=== PATIENT | male | born 1995 | race Caucasian/White ===

== ENCOUNTER 2018-02-20 23:32 | Observation (INO) | payer OTHER ==
[~2018-02-20] VITALS: Ht 190.5 cm; Wt 64.9 kg
[2018-02-21] VITALS (14 sets, daily range): BP systolic 102–140; BP diastolic 57–83; PULSE 62–112; TEMP 98.1–98.8
[2018-02-21 00:20] LABS: BASO % 0.3 % (0.0-2.0); EOS # 0.4 (0.0-0.7); GRAN # 3.8 (1.4-6.5); GRAN % 54.4 % (42.2-75.2); HEMATOCRIT 43.7 % (36.0-47.0); LYMPH # 2.2 (1.2-3.4); LYMPH % 31.2 % (20.0-51.0); MEAN CELL VOLUME 85 fl (80.0-95.0); MEAN CORPUSCULAR HEMOGLOBIN 29 pg (26.0-32.0); MEAN CORPUSCULAR HGB CONC 34 g/dl (33.0-37.0); MEAN PLATELET VOLUME 9.1 fl (7.4-10.4); MONO # 0.6 (0.1-0.6); PLATELET COUNT 279 K/mm3 (130-400); RED BLOOD COUNT 5.13 M/mm3 (4.20-5.60); REDCELL DISTRIBUTION WIDTH-CV 12.5 % (11.5-14.5)
[2018-02-21 00:35] LABS: ALBUMIN 4.5 gm/dL (3.5-5.0); BILIRUBIN,TOTAL 0.8 mg/dL (0.0-1.0); CALCIUM 9.3 mg/dL (8.4-10.2); CREATININE, serum 0.92 mg/dL (0.66-1.25); POTASSIUM 3.6 mmol/L (3.4-5.0); TOTAL PROTEIN 7.8 gm/dL (6.4-8.2)
[2018-02-21] MEDS ORDERED: ALLEGRA ALLERG180 MG PO (01:58)
[2018-02-21] MEDS ORDERED: FLONASE NASAL S16 GM NS (01:59)
[2018-02-22] VITALS (8 sets, daily range): BP systolic 104–116; BP diastolic 51–70; PULSE 50–79; TEMP 97.8–98.7
[2018-02-23 00:30] VITALS: PULSE 48
[2018-02-23 04:23] VITALS: BP 116/74; PULSE 52; TEMP 97.4
[2018-02-23 07:39] VITALS: BP 125/83; PULSE 58; TEMP 97.5
[2018-02-23 11:00] VITALS: BP 128/67; PULSE 78; TEMP 97.5
== END 2018-02-23 10:55 | disposition home or self-care (01) ==
LOC: COL.ER 23:32 → SURG 02-21 00:07
PROVIDERS: Emergency Medicine
DX: J93.83 Other pneumothorax (principal)
CPT/HCPCS: A7041; A9284; G0378; J1885; J2270; J2704; J7030

== ENCOUNTER → 2018-02-25 | Outpatient (CLI) | payer OTHER ==
[~2018-02-25] MED LIST: ALLEGRA ALLERG180 MG PO; FLONASE NASAL S16 GM NS
== END ==
LOC: COL.RAD 10:03
DX: Z97.8 Presence of other specified devices (principal)

== ENCOUNTER 2021-01-12 18:43 | Inpatient (IN) | payer OTHER ==
[~2021-01-12] VITALS: Ht 193 cm; Wt 65.2 kg
[2021-01-12 19:31] LABS: BASO # 0.1 K/mm3 (0.0-0.2); BASO % 0.4 % (0.0-2.0); EOS # 0.4 K/mm3 (0.0-0.7); EOS % 2.7 % (0-4.0); GRAN # 9.7 K/mm3 (1.4-6.5); GRAN % 71.1 % (42.2-75.2); HEMATOCRIT 48.5 % (42.0-52.0); HEMOGLOBIN 16.7 g/dl (13.5-18.0); LYMPH # 2.2 K/mm3 (1.2-3.4); LYMPH % 15.8 % (20.0-51.0); MEAN CELL VOLUME 86 fl (80.0-100.0); MEAN CORPUSCULAR HEMOGLOBIN 30 pg (27.0-31.0); MEAN CORPUSCULAR HGB CONC 34 g/dl (33.0-37.0); MONO # 1.3 K/mm3 (0.1-0.6); MONO % 9.7 % (1.7-9.3); PLATELET COUNT 418 K/mm3 (130-400); RED BLOOD COUNT 5.64 M/mm3 (4.20-5.60); REDCELL DISTRIBUTION WIDTH-CV 11.8 % (11.5-14.5)
[2021-01-12 19:45] LABS: ALANINE AMINOTRANSFERASE 11 U/L (0-55); ALBUMIN 4.8 gm/dL (3.5-5.0); ALKALINE PHOSPHATASE 94 U/L (40-150); ANION GAP 19 mmol/L (7-16); AST,SGOT 17 U/L (5-34); BILIRUBIN,TOTAL 2.3 mg/dL (0.2-1.2); BLOOD UREA NITROGEN 18 mg/dL (9-21); CALCIUM 9.9 mg/dL (8.4-10.2); CARBON DIOXIDE 18 mmol/L (22-29); CHLORIDE 101 mmol/L (98-107); CREATININE, serum 1.26 mg/dL (0.72-1.25); GLUCOSE 122 mg/dL (70-99); POTASSIUM 3.5 mmol/L (3.5-4.5); SODIUM 138 mmol/L (136-145); TOTAL PROTEIN 8.2 gm/dL (6.2-8.1)
[2021-01-12 19:55] LABS: TROPONIN-I < 0.010 ng/mL (0.00-0.033)
[2021-01-12 23:45] VITALS: BP 126/63; PULSE 76; TEMP 97.7
[2021-01-13 04:05] VITALS: BP 115/63; PULSE 66; TEMP 97.7
--- NOTE | 2021-01-13 06:25 | NUR ---
PT ADMITTED TO ROOM 329 LAST NOC @2350 FROM ED ACCOMPANIED BY MOTHER AND ED STAFF, PT ABLE TO STAND AND PIVOT TO BED FROM CART. PT HAS CT PRESENT IN LEFT UPPER CHEST, CURRENTLY TO WATER SEAL, PLACED ON SUCTION ONCE IN BED, SMALL AMT OF SEROSANGUINOUS FLUID PRESENT IN TUBING. NO PAIN REPORTED ON ADMIT. PT ABLE TO SLEEP PART OF THE NOC, ARNOLD GIVEN THIS AM @0605, WITH MILK AND RAFA CRACKERS.
[2021-01-13 08:00] VITALS: BP 117/52; PULSE 70; TEMP 98.1
--- NOTE | 2021-01-13 09:23 | NUR ---
ROUNDED ON PT THIS AM. CONTINUE WITH CURRENT PLAN. REEVAL IN AM POSSIBLE DISCHARGE THEN.
[2021-01-13 12:00] VITALS: BP 115/60; PULSE 85; TEMP 98.3
--- NOTE | 2021-01-13 14:03 | NUR ---
SW met with patient to complete intake. Patient's parent present Monica [phone]. Patient provides that he lives in [place] with his roomate, does not utilize DME and is independent with ADL's. Patient states that his PCP is at [facility], and has not established a PCP in this area. Patient states that if medications are needed he obtains them from [facility]. Patient does not have a DPOA-HC, mother chimed and stated that she is his primary contact. Patient states that his plan is to return to his home in [place] if he feels well enought to do so. Mother chimmed in and stated patient will go to [facility]. with her if he is unable to go to his own home [place], patient agreed. SW will continue follow. DC Plan: home in [place] or mother's home in [place] to follow.
[2021-01-13 16:50] VITALS: BP 114/68; PULSE 76; TEMP 96.1
[2021-01-13 19:01] VITALS: BP 116/71; PULSE 81; TEMP 98.3
[2021-01-13 23:36] VITALS: BP 128/62; PULSE 65; TEMP 98.2
[2021-01-14 03:09] VITALS: BP 101/61; PULSE 62; TEMP 98
--- NOTE | 2021-01-14 04:40 | NUR ---
CHEST TUBE REMAINS TO SUCTION. VERY LITTLE DRAINAGE IN PLEUROVAC. DRESSING TO LEFT UPPER CHEST CD&I. [facility]CO FOR PAIN AT [facility]
[2021-01-14 08:00] VITALS: BP 110/58; PULSE 70; TEMP 98.2
[2021-01-14] MEDS ORDERED: NORCO 325 MG-51 TAB PO (11:45)
--- NOTE | 2021-01-14 13:04 | NUR ---
DISCHARGE INSTRUCTIONS REVIEWED WITH PT AND MOM. PT VERBALIZED UNDERSTANDING. LEFT UNIT AMBULATORY.
== END 2021-01-14 12:30 | disposition home or self-care (01) | DRG 201 ==
LOC: COL.ER 18:43 → SURG 22:14
PROVIDERS: Physician Assistant; ADMIT Surgery
PROC: 0W9B30Z Drainage of Left Pleural Cavity with Drainage Device, Percutaneous Approach (ICD-10-PCS; principal; 2021-01-12)
DX: J93.83 Other pneumothorax (principal)
CPT/HCPCS: J2060; J2250; J2270; J7030

== ENCOUNTER → 2021-01-16 | Outpatient (CLI) | payer OTHER ==
[~2021-01-16] MED LIST changes: +NORCO 325 MG-51 TAB PO
== END ==
LOC: COL.RAD 09:04
DX: J93.9 Pneumothorax, unspecified (principal); Z96.9 Presence of functional implant, unspecified

== ENCOUNTER 2021-02-23 03:21 | Emergency (ER) | payer OTHER ==
[~2021-02-23] VITALS: Ht 193 cm; Wt 68.2 kg
[2021-02-23 03:36] VITALS: TEMP 97.9
[2021-02-23 07:58] VITALS: BP 115/88; PULSE 99
== END 2021-02-23 08:02 | disposition home or self-care (01) ==
LOC: COL.ER 03:21
DX: J93.83 Other pneumothorax (principal); Z88.1 Allergy status to other antibiotic agents; Z97.8 Presence of other specified devices
CPT/HCPCS: J1885; J2060